=== PATIENT | female | born 1965 ===

== ENCOUNTER 2018-02-20 12:05 | Emergency (ER) | payer BC ==
[2018-02-20 12:32] VITALS: BP 121/77; PULSE 88; RESP 18; TEMP 98.6; O2SAT 99; BMI 31.7
[2018-02-20] MEDS ORDERED: Iohexol 240 (50 ml) ONE (12:50)
--- NOTE | 2018-02-20 12:57 | ED PDOC ---
Arrival/HPI - General Chief Complaint: GI Problem Time Seen by Provider: 02/20/18 12:16 Historian: Patient - History of Present Illness Narrative History of Present Illness (Text): 02/20/18 12:44 52 year old female, whose past medical history includes cholecystectomy and hypothyroidism presents to the Emergency department with complaints of lower abdominal pain. Patient states that the pain starts her in lower abdominal region and radiates to the back and notes associated symptoms of constipation, and dry heaving. She cannot recall her last bowel movement, she denies passing gas, and states that she has been taking suppositories with no improvement to her symptoms. Patient denies fevers, chills, headache, dysuria, dizziness, chest pain, shortness of breath, dyspnea on exertion, cough, vomiting, diarrhea, neck pain, or any other complaint. Time/Duration: < week Symptom Course: Unchanged Activities at Onset: Light Context: Home Past Medical History - Provider Review Nursing Documentation Reviewed: Yes - Infectious Disease Hx of Infectious Diseases: None - Cardiac Hx Cardiac Disorders: No - Pulmonary Hx Respiratory Disorders: No - Neurological Hx Neurological Disorder: No - HEENT Hx HEENT Disorder: No - Renal Hx Renal Disorder: No - Endocrine/Metabolic Hx Endocrine Disorders: Yes Hx Hypothyroidism: Yes - Hematological/Oncological Hx Blood Disorders: No - Integumentary Hx Dermatological Disorder: No - Musculoskeletal/Rheumatological Hx Musculoskeletal Disorders: Yes Other/Comment: Right Total knee replacement 03/31/2015 - Gastrointestinal Hx Gastrointestinal Disorders: No - Genitourinary/Gynecological Hx Genitourinary Disorders: No Hx Sexually Transmitted Diseases: No - Psychiatric Hx Psychophysiologic Disorder: No Hx Substance Use: No - Surgical History Hx Joint Replacement: Yes (03/31/2015) - Anesthesia Hx Anesthesia: No - Suicidal Assessment Feels Threatened In Home Enviroment: No Family/Social History - Physician Review Nursing Documentation Reviewed: Yes Family/Social History: Unknown Family HX Smoking Status: Never Smoked Hx Alcohol Use: No Hx Substance Use: No Allergies/Home Meds Allergies/Adverse Reactions: Allergies No Known Allergies Allergy (Verified 02/20/18 12:31) Home Medications: Home Meds Medication Instructions Recorded Confirmed RX: Levothyroxine [Synthroid] 137 mg PO DAILY 02/20/18 02/20/18 Review of Systems - Review of Systems Constitutional: absent: Fevers Eyes: absent: Vision Changes ENT: absent: Rhinorrhea Respiratory: absent: SOB, Cough Cardiovascular: absent: Chest Pain Gastrointestinal: Abdominal Pain, Constipation, Other (dry heaving). absent: Diarrhea, Nausea, Vomiting Genitourinary Female: absent: Dysuria, Hematuria, Urine Output Changes Musculoskeletal: Back Pain. absent: Neck Pain Skin: absent: Rash Neurological: absent: Headache, Dizziness Endocrine: absent: Diaphoresis Psychiatric: absent: Anxiety Physical Exam Vital Signs Reviewed: Yes Vital Signs Temp Pulse Resp BP Pulse Ox 02/20/18 12:27 98.6 F 88 18 121/77 99 Temperature: Afebrile Blood Pressure: Normal Pulse: Regular Respiratory Rate: Normal Appearance: Positive for: Well-Appearing, Non-Toxic, Comfortable Pain Distress: None Mental Status: Positive for: Alert and Oriented X 3 - Systems Exam Head: Present: Atraumatic, Normocephalic Pupils: Present: PERRL Extroacular Muscles: Present: EOMI Conjunctiva: Present: Normal Mouth: Present: Moist Mucous Membranes Neck: Present: Normal Range of Motion Respiratory/Chest: Present: Clear to Auscultation, Good Air Exchange. No: Respiratory Distress, Accessory Muscle Use Cardiovascular: Present: Regular Rate and Rhythm, Normal S1, S2. No: Murmurs Abdomen: Present: Tenderness (left lower quadrant tenderness). No: Distention, Peritoneal Signs Back: Present: Normal Inspection Upper Extremity: Present: Normal Inspection. No: Cyanosis, Edema Lower Extremity: Present: Normal Inspection. No: Edema Neurological: Present: GCS=15, CN II-XII Intact, Speech Normal Skin: Present: Warm, Dry, Normal Color. No: Rashes Psychiatric: Present: Alert, Oriented x 3, Normal Insight, Normal Concentration Medical Decision Making ED Course and Treatment: 02/20/18 12:44 Impression: 52 year old female who presents to the Emergency department complaining of abdominal pain that radiates towards her back. Plan: -- CT of abdomen and Pelvis PO & IV Contrast -- Labs -- Toradol -- Test -- Urinalysis -- Reassess and disposition Prior Visits: Notes and results from previous visits were reviewed. Progress Notes: 02/20/18 16:19 CT of abdomen and Pelvis reviewed, shows: FINDINGS: LOWER THORAX:No visible consolidation, pleural effusion, or pneumothorax. LIVER:Unremarkable. GALLBLADDER AND BILE DUCTS:Cholecystectomy. PANCREAS:Unremarkable. SPLEEN:Unremarkable. ADRENALS:Unremarkable. KIDNEYS AND URETERS:The kidneys enhance symmetrically. No hydronephrosis or obstructing renal calculus. BLADDER:The urinary bladder appears unremarkable. REPRODUCTIVE:Uterus is present. APPENDIX:The appendix is not identified. No secondary signs of acute appendicitis. BOWEL:The stomach is nondistended. The bowel loops appear within normal limits of caliber without evidence of intestinal obstruction. Wall thickening and inflammatory changes at the level of the sigmoid colon consistent with acute diverticulitis. PERITONEUM:No significant free fluid. No definite free air. LYMPH NODES:No bulky lymphadenopathy identified. VASCULATURE:No aortic aneurysm. Minimal atherosclerotic calcification of the aorta present. BONES:Mild degenerative changes of the spine. OTHER FINDINGS:Surgical clips in the left pelvis. IMPRESSION: Evidence of acute diverticulitis involving the sigmoid colon. Additional findings as above. 02/20/18 17:06 Patient continually asks for medication for constipation. Explained the ct results again. Gave mg citrate and explained risks of promotility agents during acute divertyiculitis. 02/20/18 17:43 Patient tolerating po. Given detailed return instructions. Well appearing, afebrile with normal wbc and electrolytes - Lab Interpretations I have reviewed the lab results: Yes - RAD Interpretation Radiology Orders: 02/20/18 12:45 ABD PELVIS PO & IV CONTRAST [CT] Stat - Medication Orders Current Medication Orders: Discontinued Medications Ketorolac Tromethamine (Toradol) 30 mg IVP STAT STA Stop: 02/20/18 12:51 - Scribe Statement The provider has reviewed the documentation as recorded by the Giovanny Sow Provider Scribe Attestation: All medical record entries made by the Giovanny were at my direction and personally dictated by me. I have reviewed the chart and agree that the record accurately reflects my personal performance of the history, physical exam, medical decision making, and the department course for this patient. I have also personally directed, reviewed, and agree with the discharge instructions and disposition. Disposition/Present on Arrival - Present on Arrival Any Indicators Present on Arrival: No History of DVT/PE: No History of Uncontrolled Diabetes: No Urinary Catheter: No History of Decub. Ulcer: No History Surgical Site Infection Following: None - Disposition Have Diagnosis and Disposition been Completed?: Yes Diagnosis: Diverticulitis, Hematuria, Elevated LFTs Disposition: HOME/ ROUTINE Disposition Time: 17:39 Patient Plan: Discharge Patient Problems: Current Active Problems Problem Status Onset Diverticulitis Acute Elevated LFTs Acute Hematuria Acute Condition: GOOD Discharge Instructions (ExitCare): High Fiber Diet, Diverticulitis (DC), Me tronidazole (Systemic) Additional Instructions: Follow-up with PMD within 2 days. Do not drink while taking antibiotics. Follow-up with GI. Return to ED if condition worsens. Take full course of antibiotics. Increase fiber in diet. Prescriptions: Metronidazole [Flagyl] 500 mg PO TID #30 tablet Sulfamethoxazole/Trimethoprim [Bactrim DS 800 mg-160 mg] 1 tab PO BID #20 tab Referrals: Frankie Rivera MD [Primary Care Provider] - Follow up with primary Raúl Lamar DO [Staff Provider] - Follow up with primary Forms: [facility] (Sudanese), WORK NOTE
[2018-02-20 13:27] LABS: PH,URINE 6.5 (4.7-8.0); URINE APPEARANCE CLEAR (CLEAR); URINE BILIRUBIN NEGATIVE (NEGATIVE); URINE BLOOD TRACE-INTACT (NEGATIVE); URINE COLOR YELLOW (YELLOW); URINE GLUCOSE (UA) NEGATIVE (NEGATIVE); URINE LEUKOCYTE ESTERASE MODERATE Leu/uL (NEGATIVE); URINE PROTEIN NEGATIVE mg/dL (<30 mg/dL); URINE UROBILINOGEN 0.2 E.U./dL (<1 E.U./dL)
[2018-02-20 13:42] LABS: URINE BACTERIA FEW (NEG); URINE RBC 0 - 2 /hpf (0-2)
[2018-02-20 13:44] LABS: URINE EPITHELIAL CELLS 0 - 2 /hpf (0-5)
[2018-02-20 14:01] LABS: BASO # 0.02 K/mm3 (0.0-2.0); BASO % 0.2 % (0.0-3.0); EOS # 0.1 (0.0-0.7); EOS % 0.5 % (1.5-5.0); GRAN # 7.93 (1.4-6.5); GRAN % 72.3 % (50.0-68.0); HEMOGLOBIN 14.7 g/dL (12.0-16.0); LYMPH # 2.3 (1.2-3.4); LYMPH % 20.9 % (22.0-35.0); MEAN CELL VOLUME 86.7 fl (80.0-105.0); MEAN CORPUSCULAR HEMOGLOBIN 29.1 pg (25.0-35.0); MEAN CORPUSCULAR HGB CONC 33.6 g/dl (31.0-37.0); MEAN PLATELET VOLUME 9.8 fl (7.0-11.0); MONO # 0.7 (0.1-0.6); MONO % 6.1 % (1.0-6.0); RBC 5.05 10^6/uL (3.5-6.1); RED CELL DISTRIBUTION WIDTH 13.5 % (11.5-14.5)
[2018-02-20 14:11] LABS: ALB/GLOB RATIO 1.1 (1.1-1.8); ALBUMIN 4.8 g/dL (3.0-4.8); ALT/SGPT 67 U/L (7-56); AST/SGOT 68 U/L (14-36); BLOOD UREA NITROGEN 7 mg/dL (7-21); CALCIUM 10.2 mg/dL (8.4-10.5); GFR NON-AFRICAN AMERICAN > 60; LIPASE 77 U/L (23-300)
[2018-02-20] MEDS ORDERED: Iohexol 350 MG/100 ML VIAL ONE (15:05)
--- NOTE | 2018-02-20 16:14 | CT ---
PROCEDURE: CT Abdomen and Pelvis with oral and IV contrast. HISTORY: abdominal pain, constipation COMPARISON: None available. TECHNIQUE: Contiguous axial images of the abdomen and pelvis. Oral and IV contrast was administered. Coronal and Sagittal reformats generated and reviewed. Contrast dose: 100 mL Omnipaque 350 IV Radiation dose: Total exam DLP = 710.68 mGy-cm. This CT exam was performed using one or more of the following dose reduction techniques: Automated exposure control, adjustment of the mA and/or kV according to patient size, and/or use of iterative reconstruction technique. FINDINGS: LOWER THORAX: No visible consolidation, pleural effusion, or pneumothorax. LIVER: Unremarkable. GALLBLADDER AND BILE DUCTS: Cholecystectomy. PANCREAS: Unremarkable. SPLEEN: Unremarkable. ADRENALS: Unremarkable. KIDNEYS AND URETERS: The kidneys enhance symmetrically. No hydronephrosis or obstructing renal calculus. BLADDER: The urinary bladder appears unremarkable. REPRODUCTIVE: Uterus is present. APPENDIX: The appendix is not identified. No secondary signs of acute appendicitis. BOWEL: The stomach is nondistended. The bowel loops appear within normal limits of caliber without evidence of intestinal obstruction. Wall thickening and inflammatory changes at the level of the sigmoid colon consistent with acute diverticulitis. PERITONEUM: No significant free fluid. No definite free air. LYMPH NODES: No bulky lymphadenopathy identified. VASCULATURE: No aortic aneurysm. Minimal atherosclerotic calcification of the aorta present. BONES: Mild degenerative changes of the spine. OTHER FINDINGS: Surgical clips in the left pelvis. IMPRESSION: Evidence of acute diverticulitis involving the sigmoid colon. Additional findings as above.
[2018-02-20] MEDS ORDERED: cefTRIAXone 1 gm 1 GM/100 ML BAG IVPB STA (16:20)
[2018-02-20] MEDS ORDERED: metroNIDAZOLE IV 500 mg/100 ml 500 MG/100 ML BAG IVPB STA (16:20)
[2018-02-20] MEDS ORDERED: Magnesium Citrate Oral SOL (300 ml) PO STA (17:05)
== END 2018-02-20 18:30 | disposition home or self-care (01) ==
LOC: ED 12:05
DX: K57.92 Diverticulitis of intestine, part unspecified, without perforation or abscess without bleeding (principal); R31.9 Hematuria, unspecified; R79.89 Other specified abnormal findings of blood chemistry; E03.9 Hypothyroidism, unspecified
CPT/HCPCS: 74177; 80053; 81001; 83690; 85025; 87040; 87086; 96365; 96367; 96375; 99281; J0696; J1885; Q9966; Q9967

== ENCOUNTER 2018-09-01 09:57 | Inpatient (IN) | payer BC ==
[2018-09-01 09:58] VITALS: BMI 30.2
[2018-09-01] MEDS ORDERED: Morphine 4 mg/ml ISec IVP STA (10:51)
[2018-09-01] MEDS ORDERED: Sodium Chloride 0.9% 1,000 ML IV STA (10:51)
[2018-09-01 11:20] LABS: URINE BILIRUBIN NEGATIVE (NEGATIVE); URINE BLOOD NEGATIVE (NEGATIVE); URINE GLUCOSE (UA) NEGATIVE (NEGATIVE); URINE LEUKOCYTE ESTERASE TRACE Leu/uL (NEGATIVE); URINE PROTEIN NEGATIVE mg/dL (<30 mg/dL); URINE UROBILINOGEN 0.2 E.U./dL (<1 E.U./dL)
[2018-09-01 11:21] LABS: BASO # 0.01 K/mm3 (0.0-2.0); BASO % 0.1 % (0.0-3.0); EOS # 0.1 (0.0-0.7); EOS % 0.6 % (1.5-5.0); HEMOGLOBIN 13.5 g/dL (12.0-16.0); LYMPH # 2.5 (1.2-3.4); LYMPH % 29.2 % (22.0-35.0); MEAN CELL VOLUME 89.3 fl (80.0-105.0); MEAN CORPUSCULAR HEMOGLOBIN 28.8 pg (25.0-35.0); MEAN CORPUSCULAR HGB CONC 32.2 g/dl (31.0-37.0); MONO # 0.7 (0.1-0.6); MONO % 8.2 % (1.0-6.0); RBC 4.69 10^6/uL (3.5-6.1); RED CELL DISTRIBUTION WIDTH 13.9 % (11.5-14.5); WHITE BLOOD COUNT 8.4 10^3/uL (4.5-11.0)
[2018-09-01 11:22] LABS: ALB/GLOB RATIO 1.3 (1.1-1.8); ALBUMIN 4.4 g/dL (3.0-4.8); BLOOD UREA NITROGEN 14 mg/dL (7-21); CALCIUM 9.5 mg/dL (8.4-10.5); GFR NON-AFRICAN AMERICAN > 60; LIPASE 72 U/L (23-300); URINE COLOR YELLOW (YELLOW)
[2018-09-01 11:23] LABS: URINE APPEARANCE CLEAR (CLEAR)
[2018-09-01 11:30] LABS: URINE BACTERIA SMALL /hpf; URINE EPITHELIAL CELLS 0 - 2 /hpf (0-5); URINE WBC 0 - 2 /hpf (0-6)
--- NOTE | 2018-09-01 11:44 | RAD ---
Date of service: 09/01/2018 HISTORY: abd pain/ COMPARISON: 02/07/2016 TECHNIQUE: 1 view obtained. FINDINGS: LUNGS: No active pulmonary disease. PLEURA: No significant pleural effusion identified, no pneumothorax apparent. CARDIOVASCULAR: No aortic atherosclerotic calcification present. Normal cardiac size. No pulmonary vascular congestion. OSSEOUS STRUCTURES: No significant abnormalities. VISUALIZED UPPER ABDOMEN: Normal. OTHER FINDINGS: None. IMPRESSION: No active disease.
--- NOTE | 2018-09-01 11:47 | ED PDOC ---
Arrival/HPI - General Chief Complaint: Abdominal Pain Time Seen by Provider: 09/01/18 10:06 Historian: Patient - History of Present Illness Narrative History of Present Illness (Text): 09/01/18 11:43 53-year-old female presents today with lower abdominal pain that has been worsening over the past few days. Patient states she has a history of diverticulitis in the past. Patient states she has been having intermittent abdominal pain for a while now but states over the past few days the pain is worsened. Patient states she was seen by her GI doctor today and was advised to come to the hospital if the pain worsen. Patient states that when she got home today the pain became significant and she came into the emergency room for evaluation. Patient states her GI doctor told her he thought it was diverticulitis again and had given her prescriptions for Cipro Flagyl and Tylenol 3. Patient denies any dizziness or weakness. No urinary symptoms. Patient states the pain is sharp and crampy and radiates to the left flank. Patient denies chest pain or shortness of breath. Denies fevers at home. No vomiting. No other complaints Past Medical History - Provider Review Nursing Documentation Reviewed: Yes - Travel History Have you recently traveled outside [place] w/in the past 3 mons?: No - Infectious Disease Hx of Infectious Diseases: None - Cardiac Hx Cardiac Disorders: No - Pulmonary Hx Respiratory Disorders: No - Neurological Hx Neurological Disorder: No - HEENT Hx HEENT Disorder: No - Renal Hx Renal Disorder: No - Endocrine/Metabolic Hx Endocrine Disorders: Yes Hx Hypothyroidism: Yes - Hematological/Oncological Hx Blood Disorders: No - Integumentary Hx Dermatological Disorder: No - Musculoskeletal/Rheumatological Hx Musculoskeletal Disorders: Yes Other/Comment: Right Total knee replacement 03/31/2015 - Gastrointestinal Hx Gastrointestinal Disorders: No - Genitourinary/Gynecological Hx Genitourinary Disorders: No Hx Sexually Transmitted Diseases: No - Psychiatric Hx Psychophysiologic Disorder: No Hx Substance Use: No - Surgical History Hx Joint Replacement: Yes (03/31/2015) - Anesthesia Hx Anesthesia: No Hx Anesthesia Reactions: No Hx Malignant Hyperthermia: No - Suicidal Assessment Feels Threatened In Home Enviroment: No Family/Social History - Physician Review Nursing Documentation Reviewed: Yes Family/Social History: Unknown Family HX Smoking Status: Never Smoked Hx Alcohol Use: No Hx Substance Use: No Allergies/Home Meds Allergies/Adverse Reactions: Allergies No Known Allergies Allergy (Verified 02/20/18 12:31) Home Medications: Home Meds Medication Instructions Recorded Confirmed Levothyroxine [Synthroid] 137 mg PO DAILY 02/20/18 02/20/18 Review of Systems - Review of Systems Constitutional: absent: Fatigue, Fevers Respiratory: absent: SOB, Cough Cardiovascular: absent: Chest Pain, Palpitations Gastrointestinal: Abdominal Pain, Diarrhea. absent: Constipation, Nausea, Vomiting Genitourinary Female: absent: Dysuria, Frequency, Hematuria Musculoskeletal: Back Pain. absent: Arthralgias, Neck Pain Skin: absent: Rash, Pruritis Neurological: absent: Headache, Dizziness Psychiatric: absent: Anxiety, Depression, Suicidal Ideation Physical Exam Vital Signs Reviewed: Yes Vital Signs Temp Pulse Resp Pulse Ox 09/01/18 09:58 98.7 F 75 18 98 Temperature: Afebrile Blood Pressure: Normal Pulse: Regular Respiratory Rate: Normal Appearance: Positive for: Well-Appearing, Non-Toxic, Comfortable Pain Distress: None Mental Status: Positive for: Alert and Oriented X 3 - Systems Exam Head: Present: Atraumatic Mouth: Present: Moist Mucous Membranes Neck: Present: Normal Range of Motion Respiratory/Chest: Present: Clear to Auscultation, Good Air Exchange. No: Respiratory Distress, Accessory Muscle Use Cardiovascular: Present: Regular Rate and Rhythm, Normal S1, S2. No: Murmurs Abdomen: Present: Tenderness (+ diffuse lower abdominal tenderness greated in the LLQ), Guarding. No: Distention, Peritoneal Signs, Rebound Back: Present: Normal Inspection. No: CVA Tenderness, Midline Tenderness, Paraspinal Tenderness Upper Extremity: Present: Normal ROM Lower Extremity: Present: Normal ROM Neurological: Present: GCS=15, Speech Normal Skin: Present: Warm, Dry, Normal Color. No: Rashes Psychiatric: Present: Alert, Oriented x 3 Medical Decision Making ED Course and Treatment: 09/01/18 11:48 Patient is nontoxic well appearing with stable vital signs presenting with lower abdominal pain CBC: wnl CMP: wnl Lipase: wnl cxr; wnl Urinalysis: trace leukocytes CAT scan: FINDINGS: LOWER THORAX: Unremarkable. LIVER: Unremarkable. No gross lesion or ductal dilatation. GALLBLADDER AND BILE DUCTS: Gallbladder removed PANCREAS: Unremarkable. No gross lesion or ductal dilatation. SPLEEN: Unremarkable. ADRENALS: Unremarkable. No mass. KIDNEYS AND URETERS: Unremarkable. No hydronephrosis. No solid mass. VASCULATURE: Unremarkable. No aortic aneurysm. Minimal aortic calcification BOWEL: There is severe diverticulosis of the descending and sigmoid colon. Minimal mesenteric inflammation is seen consistent with mild diverticulitis. There is no abscess or free air APPENDIX: Normal appendix. PERITONEUM: Unremarkable. No free fluid. No free air. LYMPH NODES: Unremarkable. No enlarged lymph nodes. BLADDER: Unremarkable. REPRODUCTIVE: Unremarkable. BONES: No acute fracture. OTHER FINDINGS: None. IMPRESSION: There is severe diverticulosis of the descending and sigmoid colon. Minimal mesenteric inflammation is seen consistent with mild diverticulitis. There is no abscess or free air Patient reassessment: pt with continued pain; will admit obs to med/surg for pain control and IV abx. case discussed with dr. newell; accepts obs admission. case discussed with the patients GI specialist dr. velasco; Discussed all results with patient in depth Impression: Abdominal pain, diverticulitis admit obs med/surg - Lab Interpretations Lab Results: Total Bilirubin 1.6 mg/dL (0.2-1.3) H 09/01/18 11:00 Total Protein 7.9 g/dL (5.8-8.3) 09/01/18 11:00 Albumin 4.4 g/dL (3.0-4.8) 09/01/18 11:00 Globulin 3.5 gm/dL 09/01/18 11:00 Albumin/Globulin Ratio 1.3 (1.1-1.8) 09/01/18 11:00 Lipase 72 U/L (23-300) 09/01/18 11:00 Urine Color Yellow (YELLOW) 09/01/18 11:00 Urine Appearance Clear (CLEAR) 09/01/18 11:00 Urine pH 6.0 (4.7-8.0) 09/01/18 11:00 Ur Specific [place] 1.010 (1.005-1.035) 09/01/18 11:00 Urine Protein Negative mg/dL (<30 mg/dL) 09/01/18 11:00 Urine Glucose (UA) Negative mg/dL (NEGATIVE) 09/01/18 11:00 Urine Ketones Negative mg/dL (NEGATIVE) 09/01/18 11:00 Urine Blood Negative (NEGATIVE) 09/01/18 11:00 Urine Nitrate Negative (NEGATIVE) 09/01/18 11:00 Urine Bilirubin Negative (NEGATIVE) 09/01/18 11:00 Urine Urobilinogen 0.2 E.U./dL (<1 E.U./dL) 09/01/18 11:00 Ur Leukocyte Esterase Trace James/uL (NEGATIVE) H 09/01/18 11:00 Urine RBC None /hpf (0-2) 09/01/18 11:00 Urine WBC 0 - 2 /hpf (0-6) 09/01/18 11:00 Ur Epithelial Cells 0 - 2 /hpf (0-5) 09/01/18 11:00 Urine Bacteria Small /hpf (NONE) 09/01/18 11:00 - RAD Interpretation Radiology Orders: 09/01/18 10:50 ABD & PELVIS IV CONTRAST ONLY [CT] Stat CHEST PORTABLE [RAD] Stat - Medication Orders Current Medication Orders: Sodium Chloride (Sodium Chloride 0.9%) 1,000 mls @ 999 mls/hr IV .Q1H1M STA Stop: 09/01/18 11:51 Last Admin: 09/01/18 11:22 Dose: 999 mls/hr eMAR Start Stop Document 09/01/18 11:22 GMI (Rec: 09/01/18 11:22 GMI [place] [id number]) Intravenous Solution Start Date 09/01/18 Start Time 11:22 End Date 09/01/18 End time 12:25 Total Infusion Time 63 Discontinued Medications Morphine Sulfate (Morphine) 4 mg IVP STAT STA Stop: 09/01/18 10:52 Last Admin: 09/01/18 11:21 Dose: 4 mg MAR Pain Assessment Document 09/01/18 11:21 GMI (Rec: 09/01/18 11:22 GMI [place] [id number]) Pain Reassessment Is this a pain reassessment? Yes Sleep Is patient sleeping during reassessment? No Presence of Pain Presence of Pain Yes Pain Scale Used Protocol: PSCALES Pain Scale Used Numeric Location Upper or Lower Lower Pain Location Body Site Abdomen Description Description Constant Intensity of Pain at present 9 Pain Behavior Moaning IVP Administration Document 09/01/18 11:21 GMI (Rec: 09/01/18 11:22 GMI [id number]) Charges for Administration # of IVP Administrations 1 Ondansetron HCl (Zofran Inj) 4 mg IVP STAT STA Stop: 09/01/18 10:52 Last Admin: 09/01/18 11:21 Dose: 4 mg IVP Administration Document 09/01/18 11:21 GMI (Rec: 09/01/18 11:21 [id number] Charges for Administration # of IVP Administrations 1 Disposition/Present on Arrival - Present on Arrival Any Indicators Present on Arrival: No History of DVT/PE: No History of Uncontrolled Diabetes: No Urinary Catheter: No History of Decub. Ulcer: No History Surgical Site Infection Following: None - Disposition Have Diagnosis and Disposition been Completed?: Yes Diagnosis: Diverticulitis Disposition: HOSPITALIZED Disposition Time: 13:01 Patient Plan: Observation Condition: FAIR Referrals: Luis Steele MD [Primary Care Provider] - Follow up with primary Forms: [employer] (Portuguese)
[2018-09-01] MEDS ORDERED: Iohexol 350 MG/100 ML VIAL ONE (11:48)
[2018-09-01 12:12] LABS: ALT/SGPT 33 U/L (7-56); AST/SGOT 29 U/L (14-36)
--- NOTE | 2018-09-01 12:27 | CT ---
Date of service: 09/01/2018 PROCEDURE: CT Abdomen and Pelvis with contrast HISTORY: llq abd pain COMPARISON: None. TECHNIQUE: Contrast dose: 100 cc of Omni 350 Radiation dose: Total exam DLP = 784.34 mGy-cm. This CT exam was performed using one or more of the following dose reduction techniques: Automated exposure control, adjustment of the mA and/or kV according to patient size, and/or use of iterative reconstruction technique. FINDINGS: LOWER THORAX: Unremarkable. LIVER: Unremarkable. No gross lesion or ductal dilatation. GALLBLADDER AND BILE DUCTS: Gallbladder removed PANCREAS: Unremarkable. No gross lesion or ductal dilatation. SPLEEN: Unremarkable. ADRENALS: Unremarkable. No mass. KIDNEYS AND URETERS: Unremarkable. No hydronephrosis. No solid mass. VASCULATURE: Unremarkable. No aortic aneurysm. Minimal aortic calcification BOWEL: There is severe diverticulosis of the descending and sigmoid colon. Minimal mesenteric inflammation is seen consistent with mild diverticulitis. There is no abscess or free air APPENDIX: Normal appendix. PERITONEUM: Unremarkable. No free fluid. No free air. LYMPH NODES: Unremarkable. No enlarged lymph nodes. BLADDER: Unremarkable. REPRODUCTIVE: Unremarkable. BONES: No acute fracture. OTHER FINDINGS: None. IMPRESSION: There is severe diverticulosis of the descending and sigmoid colon. Minimal mesenteric inflammation is seen consistent with mild diverticulitis. There is no abscess or free air
[2018-09-01] MEDS ORDERED: cefTRIAXone 1 gm 1 GM/100 ML BAG IVPB STA (12:53)
[2018-09-01] MEDS ORDERED: metroNIDAZOLE IV 500 mg/100 ml 500 MG/100 ML BAG IVPB STA (12:53)
[2018-09-01] MEDS ORDERED: Morphine 2 mg/ml ISec IVP STA (14:23)
[2018-09-01] MEDS ORDERED: HYDROmorphone 2 mg/ml ISec IVP PRN (14:26)
[2018-09-01] MEDS: metroNIDAZOLE IV 500 mg/100 ml 500 MG/100 ML BAG IVPB SCH ×2 (14:43→21:48)
[2018-09-01] MEDS ORDERED: Levothyroxine 125 MCG TAB PO SCH (14:45)
[2018-09-01] MEDS: Dextrose 5%/0.45% NS 1,000 ML IV SCH (14:49)
[2018-09-01] MEDS ORDERED: Pneumococcal 23-Valent Vaccine IM ONE (18:05)
--- NOTE | 2018-09-01 21:10 | HP ---
DATE OF EXAM: 09/01/2018 HISTORY OF PRESENT ILLNESS: The patient is 53-year-old, patient of Dr. Green who came to emergency room because of increasing abdominal pain. The patient states she was seen by Dr. Lamar this morning who advised her to come to emergency room. She states she is having this pain and intermittent pain, going on for sometime, she was given prescription of Cipro and Flagyl, but she states since pain was getting worse, she did not even buy the medication and instead came to the emergency room. nausea or vomiting. No chest pain. No shortness of breath. Complained of decreased appetite and intermittent nausea. Pain seems to be cramping and more so in the left lower quadrant area. PAST MEDICAL HISTORY: Significant for hypothyroidism and history of diverticulosis. ALLERGY: SHE IS NOT ALLERGIC TO ANY MEDICATION. MEDICATIONS AT HOME: She is on levothyroxine 137 mcg daily. She was given prescription for metronidazole and Bactrim. SOCIAL HISTORY: Denies smoking, drinking, or alcohol use. PHYSICAL EXAMINATION: On examination; GENERAL: The patient is awake and alert; able to communicate. Not in any acute distress. VITAL SIGNS: She is afebrile, pulse 75, respiration 18, and blood pressure 131/83. LUNGS: Bilateral fair airflow. No rhonchi or crackle. HEART: S1 and S2 audible. ABDOMEN: Soft. Left lower quadrant; palpable discomfort. NEUROLOGIC: She is awake and alert; able to communicate. LABORATORY DATA: WBCs 8.4, hemoglobin 13, hematocrit 41, and platelet 303. Chemistry; sodium 141, potassium 4.3, chloride 104, CO2 of 26, BUN 14, creatinine 0.5, and blood sugar of 96. Total bili 1.6. Urinalysis is unremarkable. She had CT scan of the abdomen and pelvis done that shows severe diverticulosis of descending and sigmoid colon with mesenteric inflammation, consistent with diverticulitis. No abscess . ASSESSMENT: 1. Acute diverticulitis. 2. History of hypothyroidism. PLAN: The patient will be admitted. We will give her clear liquid and IV antibiotic. Analgesic as needed and antiemetics as needed, and we will resume her thyroid medication. Dr. Lamar has been consulted. We will follow up the patient in a.m. Lito Silverio MD [facility] # [id number]
[2018-09-01] MEDS: POLYETHYLENE GLYCOL 3350 17 GM/Dose PACKET PO SCH (21:51)
[2018-09-02] MEDS: Dextrose 5%/0.45% NS 1,000 ML IV SCH ×3 (00:35→19:03)
[2018-09-02] MEDS: Morphine 4 mg/ml ISec IVP PRN ×5 (01:00→20:07)
[2018-09-02] MEDS: metroNIDAZOLE IV 500 mg/100 ml 500 MG/100 ML BAG IVPB SCH ×3 (05:03→21:58)
[2018-09-02 07:47] LABS: BASO # 0.01 K/mm3 (0.0-2.0); BASO % 0.1 % (0.0-3.0); EOS # 0.1 (0.0-0.7); EOS % 0.8 % (1.5-5.0); HEMOGLOBIN 12.6 g/dL (12.0-16.0); LYMPH # 2.2 (1.2-3.4); LYMPH % 29.9 % (22.0-35.0); MEAN CELL VOLUME 89.5 fl (80.0-105.0); MEAN CORPUSCULAR HEMOGLOBIN 28.8 pg (25.0-35.0); MEAN CORPUSCULAR HGB CONC 32.2 g/dl (31.0-37.0); MONO # 0.6 (0.1-0.6); MONO % 8.2 % (1.0-6.0); RBC 4.37 10^6/uL (3.5-6.1); RED CELL DISTRIBUTION WIDTH 13.9 % (11.5-14.5); WHITE BLOOD COUNT 7.3 10^3/uL (4.5-11.0)
[2018-09-02 07:57] LABS: ALB/GLOB RATIO 1.3 (1.1-1.8); ALBUMIN 3.8 g/dL (3.0-4.8); ALT/SGPT 25 U/L (7-56); AST/SGOT 24 U/L (14-36); BLOOD UREA NITROGEN 6 mg/dL (7-21); CALCIUM 9.1 mg/dL (8.4-10.5); GFR NON-AFRICAN AMERICAN > 60
[2018-09-02 08:10] LABS: FREE T4 1.04 ng/dL (0.78-2.19)
[2018-09-02] MEDS ORDERED: Levothyroxine 112 MCG TAB ONE (08:23)
[2018-09-02] MEDS: cefTRIAXone 1 gm 1 GM/100 ML BAG IVPB SCH (10:08)
[2018-09-02] MEDS: POLYETHYLENE GLYCOL 3350 17 GM/Dose PACKET PO SCH ×2 (10:08→10:15)
--- NOTE | 2018-09-02 15:51 | PN ---
DATE: 09/02/2018 SUBJECTIVE: The patient is 53 years old, seen and examined. Came to emergency room because of intermittent abdominal discomfort. Seen by Dr. Lamar and was referred to ER for IV antibiotics and further management. She states she feels somewhat better, but still has pain in the left lower quadrant. PHYSICAL EXAMINATION: VITAL SIGNS: She is afebrile. Pulse 74, respiration 18 and blood pressure 109/73. LUNGS: Bilateral fair airflow. No rhonchi or crackle. HEART: S1 and S2, audible. ABDOMEN: Soft, but has left lower quadrant palpable discomfort. NEUROLOGIC: She is awake, alert and able to communicate. LABORATORY DATA: WBC 7.3, hemoglobin 12.6, hematocrit 39.1 and platelets 266. Chemistry; sodium 140, potassium 4.0, chloride 105, CO2 of 28, BUN 6, creatinine 0.5, blood sugar of 112 and TSH is 0.02. Urinalysis is unremarkable. ASSESSMENT: 1. Acute diverticulitis, affecting sigmoid colon. 2. History of hypothyroidism. PLAN: We will continue the patient on IV fluid. Continue on metronidazole. She is on Rocephin, we will continue that. She says that Synthroid dose seems to be higher since her TSH is suppressed. We will cut down to 125 mcg. We will continue her on IV fluid load and analgesic as needed. Zofran as needed. We will followup the patient in a.m. Lito Silverio MD
--- NOTE | 2018-09-02 17:39 | CON ---
DATE OF CONSULTATION: 09/02/2018 HISTORY OF PRESENT ILLNESS: I saw the patient this morning. She is a 53-year-old female with a past medical history of refractory slow-transit constipation, gastroesophageal reflux disease, hypothyroidism and irritable bowel. The patient was seen in the office yesterday with complaints of severe suprapubic and left lower quadrant pain. She has to taken consecutively a colon prep followed by Dulcolax tablets and magnesium citrate . On examination in the office, exam was suggestive of diverticulitis involving the distal descending colon as well as the sigmoid. At that particular time point, the abdomen was not distended, but she was experiencing peroneal-type pain with walking as well as going upstairs. The patient was given the option of oral antibiotic therapy and if not doing well, go to the emergency room. The patient subsequently called and she was advised to go to the emergency room for IV antibiotic therapy. The patient has tried numerous modalities to have bowel movements in the past, but has been unsuccessful. From at least my clinical history, the workup has been incomplete. She experiences some burning in the epigastric area on a daily basis and usually on a daily basis tries modalities including Dulcolax, magnesium citrate, etc. She has never had any rectal bleeding or hematemesis. PHYSICAL EXAMINATION: VITAL SIGNS: I reviewed this patient's vital signs. HEENT: Significant for dry mouth. LUNGS: Clear to auscultation. HEART: Regular rhythm. ABDOMEN: Soft, not distended. She is not tender over the first two thirds third of the colon involving the ascending and transverse aspects. She has some mild discomfort in the left lower quadrant on palpation of periumbilical area. She has a fullness noted in the left paraumbilical and the left lower quadrant corresponding to the area at the distal descending and sigmoid colon. DIAGNOSTIC STUDIES: Review of the x-rays indicates thorax unremarkable, gallbladder removed, pancreas noncontributory. She has severe diverticulosis involving the descending and the sigmoid colon. There is some mesenteric stranding noted in the area of descending and the sigmoid, which correlates to diverticulitis. I do not see any abscesses. LABORATORY DATA: Review of laboratory data indicates hemoglobin and hematocrit 13 and 41, white count of 8.4. Chemistry noncontributory except for glucose of 96. Urine is also noncontributory. ASSESSMENT AND PLAN: This is a 53-year-old female with history of severe refractory slow-transit constipation. The patient was unable to have a significant bowel movement. She has recently incorporated agents including Linzess as well as a colon prep. The patient was finally able to clear herself out well, but I think she overdid it using Dulcolax tablets plus magnesium citrate on top of the colon prep. This resulted in exacerbation of diverticulitis as per this admission. Reviewed the orders, which appeared to be adequate. She had a problem with analgesic once, with Dilaudid, subsequently changed over to morphine at a dose of 4Q4, which appears to be working for her. She is currently on ceftriaxone and metronidazole and she appears comfortable. She has pantoprazole ordered daily for acid reflux, also Zofran for every 6 hours. I discontinued the patient's polyethylene glycol order since use of a laxative in case of diverticulitis or partial bowel obstruction is not a good idea. Note that this patient needs an extensive workup, which would be initiated after leaving the hospital. This will include manometry with probable colon transit study, and if this is completed, most likely a colonoscopy probably done in 5-6 weeks after she is discharged from the hospital. At the current time point, due to symptoms, suggest not advance diet beyond liquid. She will be evaluated by myself as well as Dr. Silverio over the weekend, the covering doctor. Raúl Lamar DO, PhD MTDJuly
[2018-09-03] MEDS: Morphine 4 mg/ml ISec IVP PRN ×5 (01:11→21:17)
[2018-09-03] MEDS: Dextrose 5%/0.45% NS 1,000 ML IV SCH ×4 (02:52→15:25)
[2018-09-03] MEDS: metroNIDAZOLE IV 500 mg/100 ml 500 MG/100 ML BAG IVPB SCH ×3 (05:15→21:17)
--- NOTE | 2018-09-03 08:28 | PN ---
DATE: 09/03/2018 SUBJECTIVE: I examined Ms. Mensah this morning. She is a 53-year-old female with past medical history of refractory slow-transit constipation, admitted with complaints of severe abdominal pain, found to have sigmoid and descending colon diverticulitis. As indicated previously, the patient has severe constipation and has been refractory to numerous modalities including MiraLax, magnesium citrate, MOM, etc. At the bedside this morning, the patient feels somewhat improved. The pain is down to roughly a 7/10 relative to 10/10 on day of admission. There has been no hematemesis or rectal bleeding. She is still taking morphine consistently on a 4-to 5-hour basis. The abdomen is not distended and she still has not passed flatus rectally. PHYSICAL EXAMINATION: VITAL SIGNS: I reviewed this patient's vital signs HEENT: Noncontributory except for dry mouth. LUNGS: Clear to auscultation. HEART: Regular rate and rhythm. ABDOMEN: Soft. Not distended.. She is not tender in the area of the right upper or right lower quadrant. Palpation of the periumbilical area elicits some pain radiation to the left lower quadrant. She is not tender in the area above the umbilicus, except in the epigastric area, which is mild relative to yesterday. There is also a fullness and significant pain to palpation, starting in the area of the left paraumbilical going into the left lower quadrant. LABORATORY DATA: I reviewed this patient's lab data from yesterday. ASSESSMENT AND PLAN: This is a 53-year-old female admitted for complaints of severe abdominal pain secondary to the descending colon and sigmoid diverticulitis. At the current time point, she seems to be improving on ceftriaxone and metronidazole and would continue the same regimen. Based on her exam and discussion with the nurse from the floor, would still maintain a liquid diet today. Anticipate if she continues to improve, may consider advancing her diet to very small portions of soft possibly starting early Monday for breakfast. Again, this depends on her clinical progress today. The patient will be followed up by Dr. Silverio later on this morning. I appreciated her input. Raúl Lamar DO, PhD MTDJuly
[2018-09-03] MEDS: cefTRIAXone 1 gm 1 GM/100 ML BAG IVPB SCH (09:21)
[2018-09-03] MEDS: Levothyroxine 125 MCG TAB PO SCH (09:21)
--- NOTE | 2018-09-03 15:52 | PN ---
DATE: 09/03/2018 SUBJECTIVE: The patient is 63 years old, seen and examined. She states she is feeling better . She states that she still has pain, but does not require pain medication that often and in 5-1/2 hour also. The pain in definitely getting better than before. No nausea or vomiting. No diarrhea, rather she is constipated. PHYSICAL EXAMINATION: VITAL SIGNS: The patient is afebrile. Pulse 76, respiratory rate 18 and blood pressure 102/67. LUNGS: Bilateral fair airflow. No rhonchi or crackle. HEART: S1 and S2, audible. ABDOMEN: Soft and nontender. No rebound. No guarding. On abdominal exam, she has palpable discomfort in the left lower quadrant area with some guarding. NEUROLOGIC: She is awake, alert and able to communicate. LABORATORY DATA: WBC 7.3, hemoglobin 12, hematocrit 39, and platelets 266. TSH 0.02. ASSESSMENT: 1. Ascending colon diverticulitis and sigmoid colon diverticulitis. 2. Constipation. PLAN: Currently, the patient is on IV fluid. She is on metronidazole. She is on morphine as needed. She is on Protonix. She is on Rocephin. We will continue al that. Continue clear liquid diet and we will continue analgesic as needed. She will be admitted to continue her course of antibiotic and IV fluid. Lito Silverio MD
[2018-09-04] MEDS: Morphine 4 mg/ml ISec IVP PRN ×3 (02:05→22:00)
[2018-09-04] MEDS: metroNIDAZOLE IV 500 mg/100 ml 500 MG/100 ML BAG IVPB SCH ×3 (05:46→21:32)
--- NOTE | 2018-09-04 09:23 | PN ---
DATE: 09/04/2018 SUBJECTIVE: I saw Ms. Mensah this morning. She is a 53-year-old female known to the devops consultant with past medical history of refractory slow-transit constipation. The patient was admitted with symptoms of distal descending and sigmoid diverticulitis on Monday, has been on antibiotic therapy in the form of ceftriaxone and metronidazole and is presently doing much better than on the day of admission. At the bedside this morning, the abdomen was not distended. She does not have peritoneal pain with walking. There is no hematemesis or shortness of breath. The pain is rated roughly about 5 to 6/10 relative to 10/10 on day of admission. She is able to spread out her analgesic dose because of her response to antibiotics. She has been on a liquid diet and tolerating that well. PHYSICAL EXAMINATION: VITAL SIGNS: I reviewed this patient's vital signs. HEENT: Exam is noncontributory. LUNGS: Clear to auscultation. HEART: Regular rate and rhythm. ABDOMEN: Soft. Not distended. Not tender in the right upper and right lower quadrants. Mildly tender in the epigastric area. Palpation of the periumbilical elicits some discomfort in the left lower quadrant. 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 ASSESSMENT AND PLAN: This is a 53-year-old female here with diverticulitis involving the distal descending colon sigmoid. She is currently starting day #3 of antibiotic therapy in the form of ceftriaxone and metronidazole. The patient has done well up to this point in time on the current regimen and questions were to advance her diet slightly. At bedside, discussed advance her diet to very small portions of soft low residue. I advised the patient not to push the volume with each meal and if it turns out the pain component is significant after advance of diet, we will cut back to liquid again. The patient is followed up by Dr. Silverio later on this morning. Raúl Lamar DO, PhD GITA
[2018-09-04] MEDS: Pantoprazole 40 mg EC Tab PO SCH (10:05)
[2018-09-04] MEDS: Dextrose 5%/0.45% NS 1,000 ML IV SCH (10:06)
[2018-09-04] MEDS: Levothyroxine 125 MCG TAB PO SCH (10:06)
[2018-09-04] MEDS: cefTRIAXone 1 gm 1 GM/100 ML BAG IVPB SCH (10:07)
--- NOTE | 2018-09-04 16:14 | PN ---
DATE: 09/04/2018 SUBJECTIVE: The patient is 53-year-old, seen and examined, doing a lot better, still has pain that comes and goes and it is below 5, requiring pain medication. PHYSICAL EXAMINATION: GENERAL: She is awake and alert; able to communicate. VITAL SIGNS: She is afebrile, pulse 63, respiration 20, and blood pressure 104/72. LUNGS: Bilateral fair airflow. No rhonchi or crackle. HEART: S1 and S2 audible. ABDOMEN: Soft and nontender. No rebound. No guarding. NEUROLOGIC: The patient is awake and alert; able to communicate. LABORATORY DATA: There is no new lab available today. ASSESSMENT: 1. Sigmoid diverticulitis. 2. Hypothyroidism. PLAN: Currently, the patient is on IV fluid. She is on metronidazole. She is on Rocephin. She is on analgesic as needed. She has been started on soft diet. We will follow her in a.m. ambulation. If the patient's pain starts improving, we will make discharge plan either tomorrow or day after. Lito Silverio MD
[2018-09-04] MEDS ORDERED: POLYETHYLENE GLYCOL 3350 17 GM/Dose PACKET PO ONE (18:42)
[2018-09-05] MEDS: metroNIDAZOLE IV 500 mg/100 ml 500 MG/100 ML BAG IVPB SCH (05:26)
--- NOTE | 2018-09-05 08:10 | PN ---
DATE: 09/05/2018 SUBJECTIVE: I saw Mrs. Mensah this morning. She is a 54-year-old female with past medical history of refractory slow-transit constipation. The patient was admitted with symptoms of descending and sigmoid diverticulitis. Since admission, she has been on Rocephin and metronidazole and she has made significant progress since the day of admission. The patient's abdomen is not distended. She rated the pain as dimunitive and she is passing flatus. Her diet was advanced yesterday and there is no problem associated with dietary intake. There is some pressure associated with passing urine as well as passing gas, but there is no rectal bleeding or hematemesis. PHYSICAL EXAMINATION: VITAL SIGNS: I reviewed this patient's vital signs. HEENT: Exam is noncontributory. LUNGS: Clear to auscultation. HEART: Regular rate and rhythm. ABDOMEN: Soft. Nontender in the epigastric area. No tenderness in the right upper and right lower quadrants. There is no radiation of pain associated with palpation of the periumbilical area. She still has a fullness noted in the area of the left paraumbilical and left lower quadrant. Also mild tenderness noted with palpation of the left lower quadrant. LABORATORY DATA: There has not been any recent labs to be evaluated. ASSESSMENT AND PLAN: This is a 53-year-old female. She has been doing well on her current regimen of antibiotics for diverticulitis of the descending and sigmoid colon. Clinically, the patient has improved significantly and that she could be discharged later this morning. Should be sent home on antibiotics either Augmentin and Flagyl or Cipro and Flagyl, the later of which she has a script for. I do not feel she needs any analgesics to be used at home since she has a script for Tylenol with Codeine if needed. The patient had a script for 14 days of Cipro and Flagyl, which I gave her in the office this Monday. At the bedside this morning, I reviewed in detail patient's diet, which will consist of a soft low residue until she finishes her antibiotics. She can use MiraLax as well as stool softeners on a daily basis. As indicated previously the patient has history of severe slow-transit constipation. Workup for her will include anorectal manometry, pudendal nerve testing, as well as defecography. A colonoscopy will be anticipated roughly six weeks after the discharge. Again, as indicated above, the patient can be discharged today to be followed up in the office next Monday. I reviewed this history with the nurses on the floor. Raúl Lamar DO, PhD GITA
[2018-09-05 08:29] VITALS: BP 105/73; PULSE 66; RESP 26; TEMP 97.8; O2SAT 96
[2018-09-05] MEDS: Levothyroxine 125 MCG TAB PO SCH (08:39)
[2018-09-05] MEDS: Pantoprazole 40 mg EC Tab PO SCH (08:40)
[2018-09-05] MEDS: cefTRIAXone 1 gm 1 GM/100 ML BAG IVPB SCH (09:39)
[2018-09-05] MEDS ORDERED: POLYETHYLENE GLYCOL 3350 17 GM/Dose PACKET PO ONE (18:45)
--- NOTE | 2018-09-06 02:37 | DS ---
HISTORY OF PRESENT ILLNESS: The patient is a 53-year-old, came to emergency room because of having intermittent abdominal pain for a couple of months, went to different doctors, finally somebody referred her to Dr. Lamar who examined the patient, gave Cipro and Flagyl, and told her if the pain gets worse go to ER, so she opted to come to emergency room for further evaluation. She had CAT scan done that shows sigmoid diverticulitis. She was kept n.p.o. and was given IV fluids. Slowly, her diet was advanced and given clear liquids as she is tolerating and she states pain is now. PHYSICAL EXAMINATION: GENERAL: She is awake and alert, able to communicate. VITAL SIGNS: The patient is afebrile, pulse 66, respirations 20, and blood pressure 105/73. LUNGS: Bilateral fair airflow. No rhonchi or crackle. HEART: S1 and S2 audible. ABDOMEN: Soft and nontender. No rebound. No guarding. NEUROLOGIC: The patient is awake and alert, able to communicate. LABORATORY DATA: TSH is 0.02. ASSESSMENT: 1. Sigmoid diverticulitis. 2. History of hypothyroidism. PLAN: The patient is being discharged home. She already has Augmentin and Flagyl at home. She is advised to have soft diet and she will follow with Dr. Lamar on Monday and she will follow up with me in 2 weeks. Lito Silverio MD
== END 2018-09-05 14:25 | disposition home or self-care (01) | DRG 392 ==
LOC: ED 09:57 → INTOOBSV 12:56 → OBSVTOIN 12:56 → ERH 12:56 → 5RSO 16:16 → OBSVTOIN 09-03 12:38 → 5RSO 09-03 14:02
PROVIDERS: ADMIT Internal Medicine; ATTEND Internal Medicine
DX: K57.32 Diverticulitis of large intestine without perforation or abscess without bleeding (principal); K59.01 Slow transit constipation; E03.9 Hypothyroidism, unspecified; K21.9 Gastro-esophageal reflux disease without esophagitis; K58.9 Irritable bowel syndrome, unspecified; Z79.890 Hormone replacement therapy; Z96.651 Presence of right artificial knee joint